=== PATIENT | male | born 1975 | race African-American/Black ===

== ENCOUNTER 2019-05-07 05:33 | Emergency (ER) | payer BC ==
[2019-05-07 05:39] VITALS: BP 114/78
--- NOTE | 2019-05-07 08:32 | ER Document Report ---
ED General - General Chief Complaint: Allergic Reaction Stated Complaint: SWELLING Time Seen by Provider: 05/07/19 08:31 Primary Care Provider: GERARDO DELAROSA [Primary Care Provider] - Follow up in 3-5 days TRAVEL OUTSIDE OF THE [place] IN LAST 30 DAYS: No - HPI Notes: 43-year-old male to the emergency department with complaints of itchy rash to bilateral arms and lip swelling that began 2 days ago. He states that he was seen in [place] an urgent care and prescribed prednisone and told to take Benadryl. He admits he took the prednisone yesterday but none today. He has not taken any Benadryl since being seen. He states that this morning he woke up and he had worsening bilateral rash and lower lip swelling. He states that initially when he presented to the urgent care he had some upper lip swelling and the rash to his arms but it had gotten better. He denies any swelling, shortness of breath, difficulty swallowing, wheezing. He states that he is not on any medicines. He denies any new products such as soaps, toiletries, lotions. - Related Data Allergies/Adverse Reactions: No Known Allergies Allergy (Verified 05/07/19 05:39) Past Medical History - General Information source: Patient - Social History Smoking Status: Never Smoker Frequency of alcohol use: Occasional Drug Abuse: None Lives with: Spouse/Significant other Family History: Reviewed & Not Pertinent Patient has suicidal ideation: No Patient has homicidal ideation: No Renal/ Medical History: Denies: Hx Peritoneal Dialysis Past Surgical History: Reports: Hx Orthopedic Surgery - broken ankle Review of Systems - Review of Systems Constitutional: denies: Chills, Fever EENT: Other - Follow-up swelling. denies: Difficulty swallowing, Throat swelling, Mouth pain Cardiovascular: denies: Chest pain, Palpitations, Dyspnea, Syncope, Dizziness, Lightheaded Respiratory: denies: Cough, Short of breath Gastrointestinal: denies: Abdominal pain, Diarrhea, Nausea, Vomiting Genitourinary: No symptoms reported Musculoskeletal: No symptoms reported Skin: See HPI, Rash Hematologic/Lymphatic: No symptoms reported Neurological/Psychological: No symptoms reported -: Yes All other systems reviewed and negative Physical Exam - Vital signs Vitals: Temp Pulse Resp BP Pulse Ox 97.5 F 51 L 18 114/78 100 05/07/19 05:38 05/07/19 05:38 05/07/19 05:38 05/07/19 05:38 05/07/19 05:38 Interpretation: Normal - General General appearance: Appears well, Alert - HEENT Head: Normocephalic Eyes: Normal Cornea: Normal Pupils: PERRL Ears: Normal External canal: Normal Tympanic membrane: Normal Sinus: Normal Nasal: Normal Mouth/Lips: Other - There is mild swelling to the bottom lip. There is no evidence for tongue swelling, oral swelling, Rai's angina, drooling. Airway is grossly patent Pharynx: Normal - No muffled voice. No: Erythema, Exudate, Retropharyngeal abscess, Tonsillar hypertrophy, Uvular edema, Potential airway comprom. Neck: Normal - Respiratory Respiratory status: No respiratory distress Chest status: Nontender Breath sounds: Normal Chest palpation: Normal - Cardiovascular Rhythm: Regular Heart sounds: Normal auscultation Murmur: No - Abdominal Inspection: Normal Distension: No distension Bowel sounds: Normal Tenderness: Nontender Organomegaly: No organomegaly - Back Back: Normal, Nontender - Neurological Neuro grossly intact: Yes Cognition: Normal Orientation: AAOx4 [place] Coma Scale Eye Opening: Spontaneous Ting Coma Scale Verbal: Oriented [place] Coma Scale Motor: Obeys Commands Ting Coma Scale Total: 15 Speech: Normal Motor strength normal: LUE, RUE, LLE, RLE Sensory: Normal - Psychological Associated symptoms: Normal affect, Normal mood - Skin Skin Temperature: Warm Skin Moisture: Dry Skin irregularity: Rash - There is urticarial rash to bilateral arms. Noted lip swelling. Rash is appears like raised macular wheals. There is no desquamation of the skin, vesicles, blistering, superimposed infection. Patient is noted to be itching bilateral forearms Course - Re-evaluation Re-evalutation: 05/07/19 Impression: Allergic reaction. Patient feeling better after Medrol, Pepcid, Benadryl. He is no longer itching on his arms and the rash to his arms has improved. He still has some lip swelling. Still considers to have no tongue swelling or difficulty with his airway. Plan to discharge home. Will send home with Medrol Dosepak and have encouraged him to take it as directed, Benadryl, Pepcid. We will also send home with an EpiPen since it is unknown what he is allergic to. He agrees with the plan and he has a plan to see his primary care physician later this week. - Vital Signs Vital signs: Temp Pulse Resp BP Pulse Ox 97.5 F 51 L 18 114/78 100 05/07/19 05:38 05/07/19 05:38 05/07/19 05:38 05/07/19 05:38 05/07/19 05:38 Discharge - Discharge Clinical Impression: Lip swelling, Urticaria Allergic reaction Qualifiers: Encounter type: initial encounter Qualified Code(s): T78.40XA - Allergy, unspecified, initial encounter Condition: Stable Disposition: HOME, SELF-CARE Instructions: Acute Allergic Reaction ([facility]) Additional Instructions: COMPLETE STEROIDS AND USE BENADRYL AND PEPCID. RETURN TO THE ER IF WORSENING SYMPTOMS TO INCLUDE WORSENING LIP SWELLING, TONGUE SWELLING, DIFFICULTY BREATHING, SHORTNESS OF BREATH. FOLLOW UP WITH YOUR PRIMARY CARE PROVIDER. Prescriptions: Diphenhydramine HCl [Benadryl] 25 - 50 mg PO Q8H #20 capsule Epinephrine [Epipen 2-Surendra] 0.3 mg IJ PRN PRN #1 pkg PRN Reason: Famotidine [Pepcid 20 mg Tablet] 20 mg PO DAILY #12 tablet Methylprednisolone [Medrol Dosepack (4 mg/Tab) 21 Tab/Dosepak] 4 mg PO ASDIR PRN #21 tab.ds.[email or web address] PRN Reason: Referrals: [facility] [Primary [facility]] - Follow up in 3-5 days
[2019-05-07] MEDS ORDERED: FAMOTIDINE 20 MG TABLET PO ONE (08:52)
[2019-05-07] MEDS ORDERED: METHYLPREDNISOLONE INJ 125 MG/2 ML SDV IM ONE (08:52)
[2019-05-07] MEDS ORDERED: DIPHENHYDRAMINE HCL 25 MG CAPSULE PO ONE (08:52)
== END 2019-05-07 10:05 | disposition home or self-care (01) ==
LOC: ER 05:33
DX: T78.40XA Allergy, unspecified, initial encounter (principal); R22.0 Localized swelling, mass and lump, head; L50.9 Urticaria, unspecified; X58.XXXA Exposure to other specified factors, initial encounter; T45.0X6A Underdosing of antiallergic and antiemetic drugs, initial encounter; T38.0X6A Underdosing of glucocorticoids and synthetic analogues, initial encounter; Z91.14 Patient's other noncompliance with medication regimen
CPT/HCPCS: 99283; 96374; J2930